=== PATIENT | female | born 1965 | race Caucasian/White ===

== ENCOUNTER 2019-02-22 03:08 | Emergency (ER) | payer OTHER ==
[~2019-02-22] VITALS: Ht 167.6 cm; Wt 158.8 kg
[2019-02-22 03:20] VITALS: BP_SYST 163
== END 2019-02-22 03:46 | disposition home or self-care (01) ==
LOC: SED 03:08
DX: M54.30 Sciatica, unspecified side (principal); I10 Essential (primary) hypertension; Z76.0 Encounter for issue of repeat prescription
CPT/HCPCS: 99283

== ENCOUNTER 2019-05-05 21:51 | Emergency (ER) | payer OTHER ==
[~2019-05-05] VITALS: Ht 167.6 cm; Wt 145.1 kg
[2019-05-05 22:30] VITALS: BP_SYST 192
[2019-05-05] MEDS ORDERED: ONDANSETRON 4 MG ODT TAB PO ONE (23:45)
[2019-05-05] MEDS ORDERED: GABAPENTIN 300 MG CAPSULE PO ONE (23:45)
[2019-05-06 00:19] LABS: BASOPHILS % (AUTO) 0.4 % (0.0-2.0); EOSINOPHILS # (AUTO) 0.2 K/uL (0.0-0.4); EOSINOPHILS % (AUTO) 2.1 % (0.0-4.0); HEMATOCRIT 40.7 % (36-48); HEMOGLOBIN 13.3 g/dL (12.0-16.0); LYMPHOCYTES # (AUTO) 1.2 K/uL (1.0-5.5); LYMPHOCYTES % (AUTO) 10.9 % (20.5-51.5); MEAN CORPUSCULAR HEMOGLOBIN 30 pg (27-31); MEAN CORPUSCULAR HGB CONC 33 % (32-36); MEAN CORPUSCULAR VOLUME 92 fL (79.0-98.0); MONOCYTES # (AUTO) 0.8 K/uL (0.0-1.0); MONOCYTES % (AUTO) 6.9 % (1.7-9.3); NEUTROPHILS % (AUTO) 79.7 % (40.0-70.0); PLATELET COUNT (AUTO) 171 K/uL (130-430); RED BLOOD CELL COUNT(AUTO) 4.45 MIL/uL (4.2-6.2); RED CELL DISTRIBUTION WIDTH 17.2 % (9.0-15.0); WHITE BLOOD COUNT (AUTO) 11.3 K/uL (4.8-10.8)
[2019-05-06 00:28] LABS: CALCIUM 8.9 mg/dL (8.4-11.0); CREATININE 0.95 mg/dL (0.55-1.30); POTASSIUM 4.2 mmol/L (3.5-5.1)
[2019-05-06 00:34] LABS: ALBUMIN 3.3 g/dL (3.4-4.8); TOTAL BILIRUBIN 0.3 mg/dL (0.0-1.0)
[2019-05-06 00:52] VITALS: BP_SYST 192
== END 2019-05-06 00:52 | disposition home or self-care (01) ==
LOC: SED 21:51
DX: G62.9 Polyneuropathy, unspecified (principal); I10 Essential (primary) hypertension
CPT/HCPCS: 36415; 80053; 82550; 85025; 99283; Q0162

== ENCOUNTER 2019-05-27 02:50 | Emergency (ER) | payer OTHER ==
[~2019-05-27] VITALS: Ht 167.6 cm; Wt 138.3 kg
[2019-05-27 02:55] VITALS: BP_SYST 207
[2019-05-27] MEDS ORDERED: NACL 0.9% 1,000 ML IV ONE (03:47)
[2019-05-27 04:02] LABS: BILIRUBIN,URINE NEGATIVE (NEGATIVE); BLOOD, URINE 3+ (NEGATIVE); CLARITY/URINE CLEAR (CLEAR); COLOR,URINE YELLOW (YELLOW); GLUCOSE,URINE NEGATIVE (NEGATIVE); KETONES,URINE TRACE (NEGATIVE); LEUKOCYTE ESTERASE ,URINE NEGATIVE (NEGATIVE); NITRITE, URINE NEGATIVE (NEGATIVE); PH,URINE 7.5 (5.0-8.0); PROTEIN URINE 1+ (NEGATIVE); UROBILINOGEN,URINE 0.2 (0.2-1.0)
[2019-05-27 04:07] LABS: BACTERIA,URINE FEW /HPF (None Seen); RBC,URINE 20-50 /HPF (0-3); WBC,URINE 0-3 /HPF (0-3)
[2019-05-27] MEDS ORDERED: ONDANSETRON 4 MG ODT TAB PO ONE (04:30)
[2019-05-27] MEDS ORDERED: GABAPENTIN 300 MG CAPSULE PO ONE (05:30)
[2019-05-27 06:11] VITALS: BP_SYST 170
== END 2019-05-27 06:11 | disposition home or self-care (01) ==
LOC: SED 02:50
DX: M79.2 Neuralgia and neuritis, unspecified (principal); I10 Essential (primary) hypertension
CPT/HCPCS: 81000; 99283; Q0162

== ENCOUNTER 2024-03-28 16:27 | Inpatient (IN) | payer MEDICAID, OTHER ==
[~2024-03-28] VITALS: Ht 167.6 cm; Wt 99.8 kg
[2024-03-28 16:50] VITALS: BP_SYST 151; PULSE 96; RESP 20; TEMP 98.3; O2SAT 98
[2024-03-28 18:06] LABS: CALCIUM 8.9 mg/dL (8.4-11.0); CREATININE 3.09 mg/dL (0.55-1.30); POTASSIUM 4.5 mmol/L (3.5-5.1)
[2024-03-28 18:11] LABS: BASOPHILS # (AUTO) 0.1 K/uL (0.0-0.2); BASOPHILS % (AUTO) 1.2 % (0.0-2.0); EOSINOPHILS # (AUTO) 0.5 K/uL (0.0-0.4); EOSINOPHILS % (AUTO) 4.3 % (0.0-4.0); HEMATOCRIT 31.9 % (36-48); HEMOGLOBIN 10.5 g/dL (12.0-16.0); LYMPHOCYTES # (AUTO) 3.2 K/uL (1.0-5.5); MEAN CORPUSCULAR HEMOGLOBIN 28 pg (27-31); MEAN CORPUSCULAR HGB CONC 33 % (32-36); MEAN CORPUSCULAR VOLUME 86 fL (79.0-98.0); MONOCYTES # (AUTO) 0.6 K/uL (0.0-1.0); MONOCYTES % (AUTO) 5.4 % (1.7-9.3); NEUTROPHILS # (AUTO) 7.4 K/uL (1.8-7.7); NEUTROPHILS % (AUTO) 62.1 % (40.0-70.0); PLATELET COUNT (AUTO) 314 K/uL (130-430); RED BLOOD CELL COUNT(AUTO) 3.69 MIL/uL (4.2-6.2); RED CELL DISTRIBUTION WIDTH 15.8 % (9.0-15.0); WHITE BLOOD COUNT (AUTO) 11.9 K/uL (4.8-10.8)
[2024-03-28] MEDS: MORPHINE 4 MG INJ. 4 MG/ML VIAL IVP ONE (18:44)
[2024-03-28] MEDS ORDERED: VANCOMYCIN HCL 1000 MG/VIAL IV ONE (21:14)
[2024-03-28] MEDS: cefTRIAXone 2 GM VIAL IV ONE (21:49)
[2024-03-28] MEDS: VANCOMYCIN HCL 1,000 MG in NS 250 ML IV ONE (21:51)
[2024-03-28] MEDS ORDERED: ACETAMINOPHEN 325 MG TABLET PO PRN (22:30)
[2024-03-28] MEDS ORDERED: MAGNESIUM SULFATE 50 ML IV PRN (22:30)
[2024-03-28] MEDS ORDERED: MUPIROCIN 2% TOPICAL OINTMENT 22 GM NS PRN (22:30)
[2024-03-28] MEDS ORDERED: ONDANSETRON HCL 4 MG/2 ML VIAL IVP PRN (22:30)
[2024-03-28] MEDS ORDERED: DOCUSATE SODIUM 100 MG CAPSULE PO PRN (22:30)
[2024-03-28] MEDS ORDERED: POTASSIUM CHLORIDE 20 MEQ TABLET.ER PO PRN (22:30)
[2024-03-28] MEDS: NACL 0.9% 1,000 ML IV SCH (23:15)
[2024-03-28] MEDS: LORazepam 2 MG/ML VIAL IVP PRN (23:16)
[2024-03-28 23:38] LABS: BILIRUBIN,URINE NEGATIVE (NEGATIVE); BLOOD, URINE 1+ (NEGATIVE); CLARITY/URINE SL CLOUDY (CLEAR); COLOR,URINE YELLOW (YELLOW); GLUCOSE,URINE NEGATIVE (NEGATIVE); KETONES,URINE NEGATIVE (NEGATIVE); LEUKOCYTE ESTERASE ,URINE 3+ (NEGATIVE); NITRITE, URINE POSITIVE (NEGATIVE); PH,URINE 6.5 (5.0-8.0); PROTEIN URINE 2+ (NEGATIVE); UROBILINOGEN,URINE 0.2 (0.2-1.0)
[2024-03-29] VITALS (8 sets, daily range): BP systolic 105–153; PULSE 76–86; RESP 18–20; TEMP 97.4–99.1; O2SAT 94–98
[2024-03-29 00:09] LABS: WBC,URINE >100 /HPF (0-3)
[2024-03-29 00:16] LABS: BACTERIA,URINE MANY /HPF (None Seen)
[2024-03-29 00:27] LABS: CANNABINOID, URINE POSITIVE (NEG <=50)
[2024-03-29 00:28] LABS: BARBITURATE, URINE NEGATIVE (NEG <=200); BENZODIAZEPINE, URINE POSITIVE (NEG <=150); COCAINE, URINE NEGATIVE (NEG <=150); METHAMPHETAMINES SCREEN,URINE NEGATIVE (NEG <=500); OPIATE, URINE POSITIVE (NEG <=100); PHENCYCLIDINE SCREEN,URINE NEGATIVE (NEG <=25); UR TRICYCLIC ANTIDEPRESSANTS NEGATIVE (NEG <=300); URINE AMPHETAMINE NEGATIVE (NEG <=500); URINE METHADONE NEGATIVE (NEG <=200); URINE OXYCODONE SCREEN NEGATIVE (NEG <=100)
[2024-03-29 03:35] LABS: BASOPHILS # (AUTO) 0.2 K/uL (0.0-0.2); BASOPHILS % (AUTO) 1.8 % (0.0-2.0); EOSINOPHILS # (AUTO) 0.5 K/uL (0.0-0.4); EOSINOPHILS % (AUTO) 4.9 % (0.0-4.0); HEMATOCRIT 30.1 % (36-48); HEMOGLOBIN 9.8 g/dL (12.0-16.0); LYMPHOCYTES # (AUTO) 3.4 K/uL (1.0-5.5); LYMPHOCYTES % (AUTO) 33.6 % (20.5-51.5); MEAN CORPUSCULAR HEMOGLOBIN 29 pg (27-31); MEAN CORPUSCULAR HGB CONC 33 % (32-36); MEAN CORPUSCULAR VOLUME 88 fL (79.0-98.0); MONOCYTES # (AUTO) 0.7 K/uL (0.0-1.0); MONOCYTES % (AUTO) 6.8 % (1.7-9.3); NEUTROPHILS # (AUTO) 5.4 K/uL (1.8-7.7); NEUTROPHILS % (AUTO) 52.9 % (40.0-70.0); PLATELET COUNT (AUTO) 283 K/uL (130-430); RED BLOOD CELL COUNT(AUTO) 3.41 MIL/uL (4.2-6.2); RED CELL DISTRIBUTION WIDTH 16.4 % (9.0-15.0); WHITE BLOOD COUNT (AUTO) 10.1 K/uL (4.8-10.8)
[2024-03-29 03:37] LABS: CALCIUM 8.8 mg/dL (8.4-11.0); CREATININE 3.07 mg/dL (0.55-1.30); POTASSIUM 4.2 mmol/L (3.5-5.1)
[2024-03-29] MEDS: MORPHINE 2 MG/ML INJ. SYRINGE IVP PRN (04:29)
[2024-03-29] MEDS: cefTRIAXone 1 GM IVPB PREMIX 50 ML IV SCH (08:45)
[2024-03-29] MEDS: HEPARIN SODIUM,PORCINE 5,000 UNITS/ML VIAL SUBCUT SCH (08:49)
[2024-03-29] MEDS ORDERED: HYDR-3917 PO (16:28)
[2024-03-29] MEDS ORDERED: CARV3.1246 PO (16:28)
[2024-03-29] MEDS ORDERED: METO25TA6 PO (16:28)
[2024-03-29] MEDS ORDERED: GABA300T28 (16:28)
[2024-03-29] MEDS: BALSAM PERU/CASTOR OIL 56.7 GM OINT...G. TP ONE (16:33)
[2024-03-29] MEDS: NYSTATIN 15 GM TOPICAL POWDER TP ONE (16:33)
[2024-03-29] MEDS: NYSTATIN 15 GM TOPICAL POWDER TP SCH (21:08)
[2024-03-30 01:35] VITALS: BP_SYST 160; PULSE 165; RESP 17; TEMP 98; O2SAT 97
[2024-03-30 05:11] LABS: BASOPHILS # (AUTO) 0.1 K/uL (0.0-0.2); BASOPHILS % (AUTO) 1.2 % (0.0-2.0); EOSINOPHILS # (AUTO) 0.5 K/uL (0.0-0.4); EOSINOPHILS % (AUTO) 5.9 % (0.0-4.0); HEMATOCRIT 28.1 % (36-48); HEMOGLOBIN 9.2 g/dL (12.0-16.0); LYMPHOCYTES # (AUTO) 3.1 K/uL (1.0-5.5); MEAN CORPUSCULAR HEMOGLOBIN 29 pg (27-31); MEAN CORPUSCULAR HGB CONC 33 % (32-36); MEAN CORPUSCULAR VOLUME 88 fL (79.0-98.0); MONOCYTES # (AUTO) 0.6 K/uL (0.0-1.0); MONOCYTES % (AUTO) 6.4 % (1.7-9.3); NEUTROPHILS # (AUTO) 4.6 K/uL (1.8-7.7); NEUTROPHILS % (AUTO) 51.5 % (40.0-70.0); PLATELET COUNT (AUTO) 230 K/uL (130-430); RED CELL DISTRIBUTION WIDTH 16.3 % (9.0-15.0); WHITE BLOOD COUNT (AUTO) 8.9 K/uL (4.8-10.8)
[2024-03-30 05:53] LABS: ALBUMIN 2.2 g/dL (3.4-4.8); CALCIUM 8.7 mg/dL (8.4-11.0); CREATININE 2.72 mg/dL (0.55-1.30); POTASSIUM 4.1 mmol/L (3.5-5.1); TOTAL BILIRUBIN 0.3 mg/dL (0.0-1.0); TOTAL PROTEIN, SERUM 7.2 g/dL (6.4-8.3)
[2024-03-30] MEDS: BALSAM PERU/CASTOR OIL 56.7 GM OINT...G. TP SCH (09:45)
[2024-03-30 11:53] VITALS: BP_SYST 154; PULSE 79; RESP 17; TEMP 97; O2SAT 93
[2024-03-30 16:50] VITALS: BP_SYST 149; PULSE 80; RESP 18; TEMP 97.4; O2SAT 93
[2024-03-30 20:00] VITALS: BP_SYST 139; PULSE 80; RESP 18; TEMP 97.9; O2SAT 96
[2024-03-31] VITALS (7 sets, daily range): BP systolic 135–154; PULSE 75–133; RESP 16–18; TEMP 97–98.8; O2SAT 92–95
[2024-03-31 07:29] LABS: BASOPHILS # (AUTO) 0.1 K/uL (0.0-0.2); BASOPHILS % (AUTO) 1.2 % (0.0-2.0); EOSINOPHILS # (AUTO) 0.6 K/uL (0.0-0.4); HEMATOCRIT 28.7 % (36-48); HEMOGLOBIN 9.3 g/dL (12.0-16.0); LYMPHOCYTES # (AUTO) 2.5 K/uL (1.0-5.5); LYMPHOCYTES % (AUTO) 30.5 % (20.5-51.5); MEAN CORPUSCULAR HEMOGLOBIN 28 pg (27-31); MEAN CORPUSCULAR HGB CONC 32 % (32-36); MEAN CORPUSCULAR VOLUME 88 fL (79.0-98.0); MONOCYTES # (AUTO) 0.6 K/uL (0.0-1.0); MONOCYTES % (AUTO) 7.6 % (1.7-9.3); NEUTROPHILS # (AUTO) 4.4 K/uL (1.8-7.7); NEUTROPHILS % (AUTO) 53.7 % (40.0-70.0); PLATELET COUNT (AUTO) 211 K/uL (130-430); RED BLOOD CELL COUNT(AUTO) 3.27 MIL/uL (4.2-6.2); WHITE BLOOD COUNT (AUTO) 8.1 K/uL (4.8-10.8)
[2024-03-31 07:42] LABS: CALCIUM 9.3 mg/dL (8.4-11.0); CREATININE 2.58 mg/dL (0.55-1.30); POTASSIUM 3.9 mmol/L (3.5-5.1)
[2024-03-31] MEDS: MORPHINE 2 MG/ML INJ. SYRINGE IVP PRN (11:36)
[2024-03-31] MEDS ORDERED: HYDROCORTISONE 1%, 28.35 GM TOPICAL CREAM TP PRN (20:30)
[2024-03-31] MEDS: QUEtiapine FUMARATE 25 MG TABLET PO SCH (21:11)
[2024-03-31] MEDS: CEFEPIME 2 GM in D5W 100 ML IV SCH (21:12)
[2024-04-01] VITALS: BP_SYST 150; PULSE 91; RESP 18; TEMP 98.2
[2024-04-01 06:48] LABS: BASOPHILS # (AUTO) 0.1 K/uL (0.0-0.2); BASOPHILS % (AUTO) 1.1 % (0.0-2.0); EOSINOPHILS # (AUTO) 0.6 K/uL (0.0-0.4); EOSINOPHILS % (AUTO) 6.6 % (0.0-4.0); HEMATOCRIT 28.9 % (36-48); HEMOGLOBIN 9.5 g/dL (12.0-16.0); LYMPHOCYTES # (AUTO) 2.8 K/uL (1.0-5.5); LYMPHOCYTES % (AUTO) 32.7 % (20.5-51.5); MEAN CORPUSCULAR HEMOGLOBIN 29 pg (27-31); MEAN CORPUSCULAR HGB CONC 33 % (32-36); MEAN CORPUSCULAR VOLUME 88 fL (79.0-98.0); MONOCYTES # (AUTO) 0.7 K/uL (0.0-1.0); MONOCYTES % (AUTO) 7.7 % (1.7-9.3); NEUTROPHILS # (AUTO) 4.5 K/uL (1.8-7.7); NEUTROPHILS % (AUTO) 51.9 % (40.0-70.0); PLATELET COUNT (AUTO) 207 K/uL (130-430); RED BLOOD CELL COUNT(AUTO) 3.29 MIL/uL (4.2-6.2); WHITE BLOOD COUNT (AUTO) 8.7 K/uL (4.8-10.8)
[2024-04-01 06:59] LABS: CALCIUM 9.1 mg/dL (8.4-11.0); CREATININE 2.69 mg/dL (0.55-1.30)
[2024-04-01] MEDS: TAMSULOSIN HCL 0.4 MG CAP PO SCH (09:09)
[2024-04-01 12:04] VITALS: BP_SYST 139; PULSE 89; RESP 18; TEMP 97.4; O2SAT 97
[2024-04-01] MEDS ORDERED: DOCU-144 PO (12:19)
[2024-04-01] MEDS ORDERED: ZOLP5TAB2 PO (12:19)
[2024-04-01] MEDS ORDERED: VENELEX60G TP (12:19)
[2024-04-01] MEDS ORDERED: ACET325T PO (12:19)
[2024-04-01] MEDS ORDERED: CEFE2FRO IV (12:19)
[2024-04-01] MEDS ORDERED: VIS25 PO (12:19)
[2024-04-01] MEDS ORDERED: TAMS0.4C96 PO (12:19)
[2024-04-01] MEDS ORDERED: SER25 PO (12:19)
[2024-04-01] MEDS ORDERED: HYDC1% TP (12:19)
[2024-04-01] MEDS ORDERED: LORA-259 PO (12:23)
[2024-04-01] MEDS: GABAPENTIN 300 MG CAPSULE PO ONE (17:25)
[2024-04-01 18:34] VITALS: BP_SYST 119; PULSE 80; RESP 18; TEMP 97.6; O2SAT 97
[2024-04-01 20:00] VITALS: BP_SYST 135; PULSE 82; RESP 18; TEMP 98.5; O2SAT 95
[2024-04-01] MEDS: ZOLPIDEM TARTRATE 5 MG TABLET PO PRN (20:54)
[2024-04-01 21:00] VITALS: O2SAT 95
[2024-04-02 00:41] VITALS: BP_SYST 133; PULSE 84; RESP 18; TEMP 97.9; O2SAT 95
[2024-04-02 06:36] LABS: BASOPHILS # (AUTO) 0.1 K/uL (0.0-0.2); BASOPHILS % (AUTO) 1.5 % (0.0-2.0); EOSINOPHILS # (AUTO) 0.6 K/uL (0.0-0.4); EOSINOPHILS % (AUTO) 7.8 % (0.0-4.0); HEMATOCRIT 27.3 % (36-48); HEMOGLOBIN 8.8 g/dL (12.0-16.0); LYMPHOCYTES # (AUTO) 2.1 K/uL (1.0-5.5); LYMPHOCYTES % (AUTO) 29.7 % (20.5-51.5); MEAN CORPUSCULAR HEMOGLOBIN 28 pg (27-31); MEAN CORPUSCULAR HGB CONC 32 % (32-36); MEAN CORPUSCULAR VOLUME 87 fL (79.0-98.0); MONOCYTES # (AUTO) 0.5 K/uL (0.0-1.0); MONOCYTES % (AUTO) 7.4 % (1.7-9.3); NEUTROPHILS # (AUTO) 3.8 K/uL (1.8-7.7); NEUTROPHILS % (AUTO) 53.6 % (40.0-70.0); PLATELET COUNT (AUTO) 170 K/uL (130-430); RED BLOOD CELL COUNT(AUTO) 3.14 MIL/uL (4.2-6.2); RED CELL DISTRIBUTION WIDTH 16.1 % (9.0-15.0); WHITE BLOOD COUNT (AUTO) 7.2 K/uL (4.8-10.8)
[2024-04-02 07:08] LABS: CREATININE 2.67 mg/dL (0.55-1.30); POTASSIUM 3.8 mmol/L (3.5-5.1)
[2024-04-02 08:00] VITALS: O2SAT 95
[2024-04-02] MEDS: GABAPENTIN 300 MG CAPSULE PO SCH (08:33)
[2024-04-02 12:35] VITALS: BP_SYST 133; PULSE 86; RESP 18; TEMP 98.8; O2SAT 98
[2024-04-02 17:12] VITALS: BP_SYST 133; PULSE 83; RESP 17; TEMP 97.6; O2SAT 97
[2024-04-02 20:00] VITALS: BP_SYST 134; PULSE 73; RESP 18; TEMP 97.9; O2SAT 95
[2024-04-03 00:48] VITALS: BP_SYST 130; PULSE 78; RESP 18; TEMP 98; O2SAT 97
[2024-04-03 07:38] LABS: BASOPHILS # (AUTO) 0.1 K/uL (0.0-0.2); BASOPHILS % (AUTO) 1.2 % (0.0-2.0); EOSINOPHILS # (AUTO) 0.5 K/uL (0.0-0.4); EOSINOPHILS % (AUTO) 7.6 % (0.0-4.0); HEMATOCRIT 29.2 % (36-48); HEMOGLOBIN 9.6 g/dL (12.0-16.0); LYMPHOCYTES # (AUTO) 2.3 K/uL (1.0-5.5); LYMPHOCYTES % (AUTO) 32.9 % (20.5-51.5); MEAN CORPUSCULAR HEMOGLOBIN 29 pg (27-31); MEAN CORPUSCULAR HGB CONC 33 % (32-36); MEAN CORPUSCULAR VOLUME 87 fL (79.0-98.0); MONOCYTES # (AUTO) 0.5 K/uL (0.0-1.0); MONOCYTES % (AUTO) 7.5 % (1.7-9.3); NEUTROPHILS # (AUTO) 3.6 K/uL (1.8-7.7); NEUTROPHILS % (AUTO) 50.8 % (40.0-70.0); PLATELET COUNT (AUTO) 158 K/uL (130-430); RED BLOOD CELL COUNT(AUTO) 3.35 MIL/uL (4.2-6.2); RED CELL DISTRIBUTION WIDTH 16.3 % (9.0-15.0)
[2024-04-03 07:55] LABS: ALBUMIN 2.2 g/dL (3.4-4.8); CALCIUM 9.3 mg/dL (8.4-11.0); CREATININE 2.66 mg/dL (0.55-1.30); POTASSIUM 3.8 mmol/L (3.5-5.1); TOTAL BILIRUBIN 0.2 mg/dL (0.0-1.0); TOTAL PROTEIN, SERUM 7.1 g/dL (6.4-8.3)
[2024-04-03 08:21] VITALS: BP_SYST 142; PULSE 70; RESP 18; TEMP 97.9; O2SAT 98
[2024-04-03 09:30] VITALS: O2SAT 98
[2024-04-03 09:56] LABS: PROTHROMBIN TIME 10.8 SECS (9.5-12.5)
[2024-04-03 17:10] VITALS: BP_SYST 141; PULSE 83; RESP 17; TEMP 98; O2SAT 97
== END 2024-04-03 17:55 | DRG 721 ==
LOC: SED 16:27 → SMU 22:31 → OBSVTOIN 03-31 11:39
PROVIDERS: ADMIT General Practice; ATTEND General Practice
DX: T81.40XA Infection following a procedure, unspecified, initial encounter (principal); N17.0 Acute kidney failure with tubular necrosis; E44.0 Moderate protein-calorie malnutrition; N13.6 Pyonephrosis; M86.8X8 Other osteomyelitis, other site; G57.83 Other specified mononeuropathies of bilateral lower limbs; E66.9 Obesity, unspecified; N18.9 Chronic kidney disease, unspecified; I12.9 Hypertensive chronic kidney disease with stage 1 through stage 4 chronic kidney disease, or unspecified chronic kidney disease; F41.9 Anxiety disorder, unspecified; Z79.899 Other long term (current) drug therapy; Z68.35 Body mass index [BMI] 35.0-35.9, adult
CPT/HCPCS: 36415; 71045; 73720; 76770; 80048; 80053; 80307; 81000; 81001; 81015; 83037; 83605; 83735; 85025; 85610; 85651; 85730; 87040; 87081; 87086; 87186; 96365; 96375; 97110-GP; 97530-GO; 97530-GP; 99285; G0378; J0692; J0696; J1644; J2060; J2270; J3370; J7060